=== PATIENT | male | born 1950 | race Caucasian/White ===

== ENCOUNTER 2024-05-11 08:11 | Inpatient (IN) ==
--- NOTE | 2024-04-21 12:11 | PAT Medication Instructions ---
Medication Instructions Date of Service April 21, 2024 Home Medications Organic Cannabis Cream 1 dose topical DAILY acetaminophen 500 mg tablet (Tylenol Extra Strength) 500 mg PO Q4H furosemide 40 mg tablet 20 mg PO QAM gabapentin 800 mg tablet 800 mg PO BID ibuprofen 200 mg capsule 200 mg PO Q6H PRN Pain ASK your surgeon for instructions ibuprofen 200 mg capsule 200 mg PO Q6H PRN Pain STOP taking 24 hours before surgery Organic Cannabis Cream 1 dose topical DAILY DO NOT take the morning of surgery furosemide 40 mg tablet 20 mg PO QAM Take morning of surgery With a small sip of water, OTHERWISE NOTHING TO EAT OR DRINK AFTER MIDNIGHT: acetaminophen 500 mg tablet (Tylenol Extra Strength) 500 mg PO Q4H gabapentin 800 mg tablet 800 mg PO BID Other Notes If you have any questions please call us at [phone] or [phone] or [phone] or [phone]
--- NOTE | 2024-04-29 09:43 | Anesthesiology Consultation ---
Date of Service April 29, 2024 Assessment & Plan (1) Encounter for pre-operative examination: - Infectious disease screening: Per assessment on 04/29/24: No known recent infectious disease contacts or current infectious disease symptoms. - Hypokalemia: Potassium low at 3.0 on preop labs. Note written to PCP- Awaiting hypokalemia response + surgeon-ordered PCP preop evaluation (Dr. Frankel/ [facility], appt 05/05). Chart Review Chart Review: Patient seen in Pre Admission Testing Teaching & Discussion Pre-Anesthesia Teaching/Discussion Notes: Instructed NPO after midnight before surgery,except medications with 15 cc of water. Medication instructions provided according to the PAT guidelines. History Surgery Operation Date: 05/11/24 07:45 Proposed Procedures p L2-L5 Decompression and Fusion, Spinal Cord Monitoring - Navneet Singh, Height/Weight Height: 5 ft 9 in Weight: 75.7 kg Allergies Allergy/AdvReac Type Severity Reaction Status Date / Time No Known Allergies Allergy Verified 04/19/24 09:50 Medications Home Medications Medication Instructions Recorded Confirmed Last Taken Organic Cannabis Cream 1 dose topical DAILY 04/19/24 04/19/24 Unknown acetaminophen 500 mg tablet 500 mg PO Q4H 04/19/24 04/19/24 Unknown (Tylenol Extra Strength) furosemide 40 mg tablet 20 mg PO QAM 04/19/24 04/19/24 Unknown gabapentin 800 mg tablet 800 mg PO BID 04/19/24 04/19/24 Unknown ibuprofen 200 mg capsule 200 mg PO Q6H PRN Pain 04/19/24 04/19/24 Unknown Past Medical History Medical History Arthritis DDD (degenerative disc disease), lumbar Edema Chronic LEs, taking furosemide Poor historian Exercise / Class Metabolic Activity III < 4 Walking/Shop/Light housework Past Surgical History Surgical History Hx of surgical procedure "Minor procedure" approximately 2013 done under anesthesia, patient cannot remember any other details Past Anesthesia History No Hx of Anesthesia Complications and No Family Hx of Anesthesia Complications History of PONV No Hx of PONV and No Hx of Motion Sickness Social History Smoking Status: Former smoker Do You Dip or Chew Tobacco: No Smoking End Date: Quit 6 weeks ago Hx Alcohol Use: Yes Alcohol type: beer alcohol intake frequency: a few times a week Hx Substance Use: No substance use type: does not use Substance Use Type Other:: topical cream only Review of Systems Patient denies chest pain, shortness of breath, fever, chills, cough, wheezing, palpitations. Physical Exam Vital Signs BP 142/68 P 72 TEMP 97.6 SP02 97%RA RESP 16 Physical Full cervical extension range of motion. Full TMJ range of motion. TMD > 3.5 finger breaths Mallampati Score II Dentition: poor dentition Lungs: clear throughout to auscultation Cardiac: regular rate and rhythm, no murmurs noted Spine: normal Carotid arteries: negative bruit Extremities: no LE edema Lab Results Anesthesia Preop Results Results Anesthesia Widget: WBC 7.94 K/ul (4.8-10.8) 04/29/24 Hgb 13.4 g/dl (14.0-18.0) L 04/29/24 Hct 38.1 % (42.0-52.0) L 04/29/24 Plt 360 K/uL (130-400) 04/29/24 Na 137 mmol/L (136-145) 04/29/24 K 3.0 mmol/L (3.5-5.1) L 04/29/24 Cl 98 mmol/L (98-107) 04/29/24 CO2 28 mmol/L (21-32) 04/29/24 BUN 18 mg/dl (6-23) 04/29/24 Creat 1.35 mg/dl (0.6-1.4) 04/29/24 Glucose Level 95 mg/dl (70-99(Fasting)) 04/29/24 PT 10.8 Seconds (9.0-12.0) 04/29/24 PTT 26 Seconds (21-31) 04/29/24 INR 1.0 (0.9-1.1) 04/29/24 Urine Color Yellow 04/29/24 Urine Appearance Clear (Clear) 04/29/24 Urine pH 5.0 (4.5-7.5) 04/29/24 Urine Specific [place] 1.013 (1.000-1.030) 04/29/24 Urine Protein Negative (Negative) 04/29/24 Urine Glucose (UA) Negative (Negative) 04/29/24 Urine Ketones Negative (Negative) 04/29/24 Urine Blood Negative (Negative) 04/29/24 Urine Nitrite Negative (Negative) 04/29/24 Urine Bilirubin Negative (Negative) 04/29/24 Urine Urobilinogen Negative (Negative) 04/29/24 Urine Leukocyte Esterase Trace (Negative) H 04/29/24 Urine WBC (Auto) 0-5 /hpf (0-5) 04/29/24 Urine RBC (Auto) 0-2 /hpf (0-2) 04/29/24 Urine Hyaline Casts (Auto) 6-10 /lpf (0-2) H 04/29/24 Urine Epithelial Cells (Auto) 0-2 /hpf (0-2) 04/29/24 Urine Bacteria (Auto) None Seen (None Seen) 04/29/24 Blood Type AB Positive 04/29/24 Antibody Screen NEGATIVE 04/29/24 Testing Electrocardiogram Date: 04/29/24 SR with PACs at 73bpm. "Otherwise normal ECG" Chest X-Ray Date: 04/29/24 FINDINGS: Cardiomediastinal hilar silhouettes are within normal limits. Hyperinflation with diaphragmatic flattening. No pneumothorax, pleural effusion or airspace consolidation. Equivocal punctate calcified granulomata. Bones appear grossly intact. IMPRESSION: No acute process of the chest.
[2024-05-11] MEDS ORDERED: PROPOFOL IV EMULSION 10 MG/ML 20 ML VIAL IV ONE (08:13)
[2024-05-11] MEDS ORDERED: ONDANSETRON INJ 2 MG/ML 2 ML VIAL ONE (08:13)
[2024-05-11] MEDS ORDERED: DEXAMETHASONE SOD INJ 4 MG/ML VIAL ONE (08:13)
[2024-05-11] MEDS ORDERED: fentaNYL citrate PF 100 MCG/2 ML VIAL ONE ×2 (08:13→11:58)
[2024-05-11] MEDS ORDERED: LIDOCAINE 2% 2 ML VIAL/AMP(20MG/ML) INFIL ONE ×2 (08:13)
[2024-05-11] MEDS ORDERED: MIDAZOLAM HCL 1 MG/ML 2ML VIAL ONE (08:13)
[2024-05-11] MEDS ORDERED: ROCURONIUM BROMIDE 10 MG/ML 5 ML VIAL IV ONE ×10 (08:14)
[2024-05-11] MEDS: ACETAMINOPHEN 500 MG TAB PO SCH (09:19)
[2024-05-11] MEDS: GABAPENTIN 300 MG CAP PO SCH (09:19)
[2024-05-11] MEDS: CeleBREX 200 MG CAP PO SCH (09:19)
[2024-05-11] MEDS: LR 60ML/HR IV SCH (09:20)
--- NOTE | 2024-05-11 09:42 | History & Physical Bridge Note ---
Date of Service May 11, 2024 History & Physical Bridge Note I have examined the patient, reviewed the History & Physical and in the interval since the performance of the History & Physical I have noted the following changes of clinical significance: no changes noted
--- NOTE | 2024-05-11 09:43 | History & Physical Report ---
Date of Service May 11, 2024 Assessment & Plan (1) Neurogenic claudication due to lumbar spinal stenosis: Plan: L2-L5 decompression and fusion possible S1 History of Present Illness Chief Complaint: Back and bilateral leg pain Primary Care Provider: NO PCP This is a 74-year-old male who presents above-mentioned diagnosis of failed course of nonoperative care is here for surgical invention. Allergies Allergy/AdvReac Type Severity Reaction Status Date / Time No Known Allergies Allergy Verified 05/11/24 09:04 Home Medications Medication Instructions Recorded Confirmed Type Organic Cannabis Cream 1 dose topical DAILY 04/19/24 05/11/24 History acetaminophen 500 mg tablet 500 mg PO Q4H 04/19/24 05/11/24 History (Tylenol Extra Strength) furosemide 40 mg tablet 20 mg PO QAM 04/19/24 05/11/24 History gabapentin 800 mg tablet 800 mg PO BID 04/19/24 05/11/24 History ibuprofen 200 mg capsule 200 mg PO Q6H PRN Pain 04/19/24 05/11/24 History Past Med/Surg History Problem List (Updated 05/11/24 @ 09:42 by Navneet Singh DO) Neurogenic claudication due to lumbar spinal stenosis Encounter for pre-operative examination Medical History Arthritis DDD (degenerative disc disease), lumbar Edema Chronic LEs, taking furosemide Poor historian Surgical History Hx of surgical procedure "Minor procedure" approximately 2013 done under anesthesia, patient cannot remember any other details Social History Smoking Status: Former smoker Smoking End Date: Quit 6 weeks ago; Second Hand Exposure: No; Do You Dip or Chew Tobacco: No; Tobacco Cessation Education Requested by Patient: No Hx Alcohol Use: Yes Alcohol type: beer Hx Substance Use: No Preferred Language: [place] Communication Ability: Effective Filter Tip Catcher Required: No Beliefs That Will Affect Care: None Current Living Situation: Alone Other Information That Helps Us Care for You: No Feels Safe at Home: Yes Safety Concerns: Feels Safe At This Time Assistive Devices: Cane, Glasses and Walker Physical Exam Physical Exam: Patient is alert and oriented heart regular rhythm Lungs clear Results & Data Results & Data Vital Signs (Past 12 Hours) Vital Signs Temp Pulse Resp BP Pulse Ox O2 Del Method 05/11/24 09:01 36.8 C 74 20 163/90 H 98 Room Air
[2024-05-11] MEDS: LR 15ML/HR IV SCH (09:51)
[2024-05-11] MEDS ORDERED: ONDANSETRON INJ 2 MG/ML 2 ML VIAL IV PRN ×2 (10:00→14:51)
[2024-05-11] MEDS ORDERED: ePHEDrine sulfate 50 MG/ML AMP IV PRN (10:00)
[2024-05-11] MEDS ORDERED: ATROPINE SULFATE 0.1 MG/ML 10ML SYR IV PRN (10:00)
[2024-05-11] MEDS: ceFAZolin 2000MG 2,000 MG/15 ML SYR IV SCH ×2 (10:19→17:20)
[2024-05-11] MEDS: BUPIVACAINE/EPINEPHRINE 0.25% 1:200,000 30 ML VIAL ONE (11:00)
[2024-05-11] MEDS ORDERED: SUGAMMADEX SODIUM 200 MG/2 ML VIAL IV ONE (11:35)
[2024-05-11] MEDS: ceFAZolin 330 MG/ML 1 GM VIAL ONE (12:58)
[2024-05-11] MEDS: FLOSEAL HEMOSTATIC MATRIX 10ML TOP ONE (12:58)
--- NOTE | 2024-05-11 13:06 | Operative Report ---
Post Operative Report Pre & Post Diagnosis Operation Date: 05/11/24 10:05 Pre-Op Diagnosis: Spinal Steonsis of Lumbar Region with Radiculopathy Post-Op Diagnosis: Spinal Steonsis of Lumbar Region with Radiculopathy I identified the patient and participated in the time-out.: Yes Procedure Operation Date: 05/11/24 10:05 Actual Procedures #1 lumbar decompression with bilateral medial facetectomies and foraminotomies L2-L3, L3-L4, L4-L5 and L5-S1. #2 posterior spinal fusion L2-S1. #3 placement posterior segmental instrumentation L2-S1. #4 interbody fusion L5-S1. #5 placement of Spira 11 x 22 mm x 2 at L5-S1. #6 placement locally harvested morselized autograft and posterior gutters. #7 placement infuse collagen sponge combined with Koros in the posterior lateral gutters and os design interbody space. #8 application of versa wrap over the exposed dura. #9 excision of extradural mass L5-S1 Surgeon Navneet Singh, DO Cnc Operator Machinist Shereen Zavala Estimated Blood Loss 450 Findings Consistent with Post-Op Diagnosis Specimens None Indications This is a 74-year-old male presents publish diagnosis after failing course of nonoperative care is here for surgical invention. Description of Procedure Patient was met with identified informed consent obtained. Patient was then taken to the operative suite underwent intubation placed in a prone position on the Dat table on top of the Ethan frame. All bony promises well-padded eyes inspected to ensure no external pressure placed upon them. This point the lumbar spine was prepped and draped in the normal sterile fashion. Sharp dissection with the assistance of Bovie cautery from down to and exposing the lamina transverse processes of L2 L3-L4-L5 and sacral ala bilaterally. From a caudal cephalad fashion complete laminectomy of L5 was performed including bilateral medial facetectomies and foraminotomies as well as excision of facet cyst on the right was directly adhered to the traversing S1 nerve root. Proceeded to L4 and performed a bilateral medial facetectomies and foraminotomies addressing severe stenosis. L3 complete laminectomy with bilateral medial facetectomies and foraminotomies and lastly L2 with bilateral medial facetectomies and foraminotomies addressing severe spinal stenosis. Pedicle screws were then placed in L2 L3-L4-L5 and S1 levels bilaterally with assistance of fluoroscopy and the properly sized taco contoured and placed. By way of transforaminal approach on the right discectomy of L5-S1 was performed endplates grade 2 subcortical bleeding bone and 11 x 26 mm spira cage filled with os designed tapped into position. Then proceeded to the left transforaminal region at L5-S1. Performed a discectomy endplates guided to subcortical bleeding bone and a second 11 x 26 mm Spira cage filled with os design tapped into position. The rods were then locked in final position bilaterally. The transverse processes of L2 L3-L4-L5 and the sacral ala burred to subcortical bleeding bone. Infuse collagen sponge combined with Koros and local autograft placed in the posterior gutters. Across cross-link locked into position. Versa wrap placed over the exposed dura. 15 round JULIAN drain inserted. The incision was then closed with 1 Vicryl in the fascia 2-0 Vicryl subcutaneously and 4 Monocryl for final skin closure. Steri-Strips and sterile dressing placed. Patient waken taken to PACU stable condition. Please note spinal cord monitoring visualized at the procedure and no changes noted. Lastly Shereen Zavala was present at the entire surgery involved in patient positioning complex portions of the surgery and final skin closure. Im ordering 20 grams of Triple [place] Collagen Powder (CreationFlow [id number]) to treat an incision wound that was caused by a spine procedure. The incision is approximately 2 cm(W) x 4 cm(L) into the joint (D) in size and is a full thickness wound. Triple [place] collagen comes in 1 gram packets so 20 packets were ordered. Given the size of the wound, with light to moderate exudate I chose to order a 20 day supply. The patient will be provided instructions for proper application of the collagen wound kit. The patient will be asked to apply the collagen powder daily and then cover it with sterile dressings dispensed. Collagen was selected as I expe ct the collagen to attract monocytes and fibroblasts, act as a sacrificial substrate for MMPs, and ultimately proved a matrix for tissue and vessel growth. The collagen will act as a primary dressing in this scenario. It is medically necessary for proper healing of these wounds to improve bioavailability and contact with each wound surface, this is also to help prevent infection of wounds and promote healing ultimately leading to a better healing outcome and limit the risk of infection. I attest to the content of the Intraoperative Record and any orders documented therein. Any exceptions are noted below.
--- NOTE | 2024-05-11 13:31 | Fluoroscopy Report ---
FL lumbar spine 2-3V CLINICAL HISTORY: L2-S1 DECOMPRESSION COMPARISON STUDY: None. FLUOROSCOPY TIME: 31 seconds. Ka, r: 29.26 mGy FLUOROSCOPIC IMAGES: 4 FINDINGS: Fluoroscopy was provided during L2-S1 decompression with bilateral pedicle screw fusion. Th e L5-S1 discectomy spacer is present. Hardware is intact. IMPRESSION: Fluoroscopy provided during L2-S1 decompression and fusion with L5-S1 discectomy. ACT 112: Negative or not required by law. Electronically signed by: Balbir Dooley M.D. 05/11/2024 1:30 PM
[2024-05-11] MEDS: fentaNYL citrate PF 100 MCG/2 ML VIAL IV PRN (13:37)
[2024-05-11] MEDS: HYDROmorphone INJ 1 MG/ML SYRINGE IV PRN (14:00)
--- NOTE | 2024-05-11 14:31 | Anesthesiology Progress Note ---
Date of Service May 11, 2024 Anesthesia Post Procedure Vital Signs Vital Signs: Temp Pulse Pulse Resp BP Pulse Ox O2 Del Method 05/11/24 14:20 97.5 F L 70 12 104/60 98 Nasal Cannula 05/11/24 14:10 76 14 105/67 100 Nasal Cannula 05/11/24 14:00 78 12 103/65 99 Nasal Cannula 05/11/24 13:50 76 12 108/66 90 Room Air 05/11/24 13:40 78 12 106/71 96 Room Air 05/11/24 13:30 75 12 118/67 100 Oxymask 05/11/24 13:20 96.8 F L 80 16 106/64 99 Oxymask 05/11/24 09:01 98.2 F 74 20 163/90 H 98 Room Air O2 Flow Rate 05/11/24 14:20 2 05/11/24 14:10 2 05/11/24 14:00 2 05/11/24 13:50 05/11/24 13:40 05/11/24 13:30 6 05/11/24 13:20 6 05/11/24 09:01 Pain Intensity Back: Pain Intensity: 1 Transfer of Care Handoff Completed per policy Notes Mental Status: alert / awake / arousable and participated in evaluation Patient Amnestic to Procedure: Yes Nausea / Vomiting: adequately controlled Pain: adequately controlled Airway Patency, RR, SpO2: stable & adequate BP & HR: stable & adequate Hydration State: stable & adequate Anesthetic Complications: no major complications apparent and Pt Satisfied with anesthetic care
[2024-05-11] MEDS ORDERED: bisacodyL 10 MG SUPP PR PRN (14:51)
[2024-05-11] MEDS ORDERED: DO NOT ADMINISTER PNEUMOCOCCAL VACCINE PRN (14:51)
[2024-05-11] MEDS ORDERED: NALOXONE HCL 0.4 MG/1 ML VIAL/CARP IV PRN (14:51)
[2024-05-11] MEDS ORDERED: SOD PHOSPHATE/SOD BIPHOSPHATE ENEMA 132 ML BTL PR PRN (14:51)
[2024-05-11] MEDS ORDERED: ALUMINUM/MAGNESIUM SUSP 30 ML UDC PO PRN (14:51)
[2024-05-11] MEDS ORDERED: hydrOXYzine HCl 25 MG TAB PO PRN (14:51)
[2024-05-11] MEDS ORDERED: HYDROmorphone INJ 1 MG/ML SYRINGE IV PRN (14:51)
[2024-05-11] MEDS ORDERED: LORazepam 2 MG/1 ML VIAL IV PRN (14:51)
[2024-05-11] MEDS ORDERED: FAMOTIDINE 20 MG TAB PO PRN (14:51)
[2024-05-11] MEDS ORDERED: PROMETHAZINE 12.5 MG/50.5 ML BAG IV PRN (14:51)
[2024-05-11] MEDS ORDERED: MAGNESIUM HYDROXIDE SUSP 30 ML UDC PO PRN (14:51)
[2024-05-11] MEDS ORDERED: ACETAMINOPHEN 1,000 MG/100 ML VIAL IV PRN (14:51)
[2024-05-11] MEDS ORDERED: ACETAMINOPHEN 500 MG TAB PO PRN (14:51)
[2024-05-11] MEDS ORDERED: ONDANSETRON 4 MG OD TAB PO PRN (14:51)
[2024-05-11] MEDS ORDERED: METOCLOPRAMIDE HCL INJ 5 MG/ML 2 ML VIAL IV PRN (14:51)
[2024-05-11] MEDS ORDERED: DO NOT ADMINISTER FLU VACCINE PRN (14:51)
[2024-05-11] MEDS: LACTATED RINGER'S 1,000 ML IV SCH (14:57)
--- NOTE | 2024-05-11 15:35 | Hospitalist Consultation ---
Date of Consultation May 11, 2024 Assessment & Plan (1) Neurogenic claudication due to lumbar spinal stenosis: (2) S/P spinal surgery: (3) Edema: (4) Poor historian: Plan This is a 74yo M with a PMH of spinal stenosis of lumbar region with neurogenic claudication, peripheral edema and other medical problems listed below who is POD #0 s/p lumbar decompression with bilateral medial facetectomies and foraminotomies L2-L3, L3-L4, L4-L5 and L5-S1 and posterior spinal fusion L2-S1 by Dr. Singh. S/p spinal surgery Underwent #1 lumbar decompression with bilateral medial facetectomies and foraminotomies L2-L3, L3-L4, L4-L5 and L5-S1. #2 posterior spinal fusion L2-S1 etc by Dr. Singh on 05/11/24 Per ortho for pain control, wound care, anticoagulation and activities Monitor H&H (EBL 450ml, pre-op hgb 13.4 from 04/29/24) Continue incentive spirometry, PT/OT when appropriate Patient stopped gabapentin 2 weeks ago at home, will discontinue Holding Cannabis cream Peripheral edema BP 121/65, trace BLE edema on exam. Continue daily lasix tomorrow DVT Ppx: SCDs Code status: FULL PCP: Jostin ([facility]) Dispo: Per primary service Patient seen in collaboration with Dr. Castano. Please see addendum. I spent a total of 50 minutes coordinating, documenting, and providing care for this patient excluding time spent in the performance of separately billed services. Thank you for this consultation. We will follow the patient with you during their hospital stay. You can reach a member of the [facility] Hospitalist Team 03/03 via [employer] Supervising Physician Co-Signing Physician Notes Pt is a 74 y/o male POD #0 s/p lumbar decompression with bilateral medial facetectomies and foraminotomies L2-L3, L3-L4, L4-L5 and L5-S1 and posterior spinal fusion L2-S1 by Dr. Singh. We are asked to see the pt for medical management. Pt seen and examined at bedside post op. His pain is under good control at present. He denies CP, SOB, nausea or emesis. I spent 15 minutes in care coordination of this post op patient. I agree with Lucretia Ochoa PA-C's assessment and documentation. Thank you Dr. Singh for the consult. History of Present Illness Reason for Consultation: post op med mgmt Attending Physician: Navneet Singh DO History of Present Illness This is a 74yo M with a PMH of spinal stenosis of lumbar region with neurogenic claudication, peripheral edema and other medical problems listed below who is POD #0 s/p lumbar decompression with bilateral medial facetectomies and foraminotomies L2-L3, L3-L4, L4-L5 and L5-S1 and posterior spinal fusion L2-S1 by Dr. Singh. Patient endorsing surgical site discomfort following procedure as well as some tightness of the hips it has been present for the past month. No w eakness or paresthesias in BLE. No chest pain, shortness of breath, nausea or vomiting. Denies any chronic medical issues other than some lower extremity swelling for which she is on Lasix. Quit smoking and drinking alcohol 7 weeks ago in preparation for the surgery. Receives primary care through [facility] in [place]. Allergies Allergy/AdvReac Type Severity Reaction Status Date / Time No Known Allergies Allergy Verified 05/11/24 09:04 Home Medications Medication Instructions Recorded Confirmed Type Organic Cannabis Cream 1 dose topical DAILY 04/19/24 05/11/24 History acetaminophen 500 mg tablet 500 mg PO Q4H 04/19/24 05/11/24 History (Tylenol Extra Strength) furosemide 40 mg tablet 20 mg PO QAM 04/19/24 05/11/24 History ibuprofen 200 mg capsule 200 mg PO Q6H PRN Pain 04/19/24 05/11/24 History Patient History Medical History Poor historian Arthritis Edema Chronic LEs, taking furosemide DDD (degenerative disc disease), lumbar Surgical History Hx of surgical procedure "Minor procedure" approximately 2013 done under anesthesia, patient cannot remember any other details Family History Other Heart disease Hypertension Social History Smoking Status: Former smoker Smoking End Date: Quit 6 weeks ago; Second Hand Exposure: No; Do You Dip or Chew Tobacco: No; Tobacco Cessation Education Requested by Patient: No Hx Alcohol Use: Yes Alcohol type: beer Hx Substance Use: No Preferred Language: [place] Communication Ability: Effective Operations Lead Required: No Beliefs That Will Affect Care: None Current Living Situation: Alone Other Information That Helps Us Care for You: No Feels Safe at Home: Yes Safety Concerns: Feels Safe At This Time Assistive Devices: Cane and Walker Review of Systems Review of Systems: At least ten systems reviewed and negative except as noted in the HPI. Physical Exam Physical Exam: General Appearance: WD/WN, vitals as above, NAD, sitting up in bed, conversing without issue Head: normocephalic, atraumatic Eyes: normal inspection, PERRL, conjunctivae normal, anicteric sclerae ENT: external ear and nose normal, oropharynx normal, + poor dentition Neck: normal visual inspection, trachea midline, no thyromegaly Respiratory: normal respiratory effort, lungs clear to auscultation, no wheeze, rales, rhonchi. No accessory muscle use Cardiovascular: regular rate, rhythm, normal peripheral pulses, trace BLE edema Chest: normal inspection of chest Abdomen/GI: normal bowel sounds, soft, nontender, no hepatosplenomegaly Extremities/Musculoskeletal: + spinal dressing c/d/i, JULIAN drain visualized, extremities motor strength 5/5 Neurologic: PERRL, EOMI, accommodation nl, no face palsy, no dysarthria, CN's II-XI intact bilaterally and moves all extremities Psychiatric: A+Ox3, euthymic affect Skin: no rashes, normal color, warm/dry Results & Data Results & Data Vital Signs (Past 12 Hours) Vital Signs Temp Pulse Pulse Resp BP Pulse Ox O2 Del Method 05/11/24 15:21 36.4 C L 76 16 105/64 100 Nasal Cannula 05/11/24 14:51 36.3 C L 78 17 123/71 99 Nasal Cannula 05/11/24 14:35 71 12 104/65 98 Nasal Cannula 05/11/24 14:20 36.4 C L 70 12 104/60 98 Nasal Cannula 05/11/24 14:10 76 14 105/67 100 Nasal Cannula 05/11/24 14:00 78 12 103/65 99 Nasal Cannula 05/11/24 13:50 76 12 108/66 90 Room Air 05/11/24 13:40 78 12 106/71 96 Room Air 05/11/24 13:30 75 12 118/67 100 Oxymask 05/11/24 13:20 36 C L 80 16 106/64 99 Oxymask 05/11/24 09:01 36.8 C 74 20 163/90 H 98 Room Air O2 Flow Rate 05/11/24 15:21 2 05/11/24 14:51 2 05/11/24 14:35 2 05/11/24 14:20 2 05/11/24 14:10 2 05/11/24 14:00 2 05/11/24 13:50 05/11/24 13:40 05/11/24 13:30 6 05/11/24 13:20 6 05/11/24 09:01 Laboratory Results Pre-op labs (04/29/24): Hgb 13.4 Creat 1.35
[2024-05-11 19:00] LABS: Amphetamines+Metham, Urine Neg (Neg); Barbiturates, Urine Neg (Neg); Benzodiazepine, Urine Pos (Neg); Cocaine, Urine Neg (Neg); Fentanyl, Urine Pos (Neg); MDMA (Ecstacy), Urine Neg (Neg); Marijuana, Urine Neg (Neg); Methadone, Urine Neg (Neg); Opiate, Urine Pos (Neg); Phencyclidine, Urine Neg (Neg)
[2024-05-11] MEDS: HYDROmorphone INJ 0.5 MG/0.5 ML SYR IV PRN (19:54)
[2024-05-11] MEDS ORDERED: GABAPENTIN 800 MG TAB PO SCH (21:00)
[2024-05-11] MEDS: oxyCODONE HCL IR 5 MG TAB (IMMEDIATE RELEASE) PO PRN (21:51)
[2024-05-11] MEDS: DOCUSATE SODIUM/SENNA 50/8.6MG TAB PO SCH (21:52)
[2024-05-12] MEDS: LORazepam 0.5 MG TAB PO PRN (00:26)
[2024-05-12] MEDS: POLYETHYLENE (MIRALAX) 17 GM PACK PO SCH (06:07)
[2024-05-12 07:18] LABS: Basophils # (auto) 0.02 K/uL (0.00-0.20); Basophils % (auto) 0.1 %; Hematocrit (blood only) 28.5 % (42.0-52.0); Hemoglobin 9.5 g/dl (14.0-18.0); Immature Granulocytes # (auto) 0.09 K/uL (0.01-0.20); Immature Granulocytes % (auto) 0.7 %; Lymphocytes # (auto) 1.32 K/uL (1.20-3.40); Lymphocytes % (auto) 9.8 %; Mean Corpuscular Hemoglobin 32.5 pg (25.0-34.0); Mean Corpuscular Hgb Conc 33.3 g/dL (32.0-36.0); Mean Corpuscular Volume 97.6 fL (80.0-100.0); Mean Platelet Volume 10.1 fL (9.4-12.4); Monocytes # (auto) 1.68 K/uL (0.11-0.59); Monocytes % (auto) 12.5 %; Neutrophils # (auto) 10.37 K/uL (1.40-6.50); Neutrophils % (auto) 76.9 %; Platelet Count 270 K/uL (130-400); RDW Coefficient of Variation 12.3 % (11.5-14.5); RDW Standard Deviation 43.9 fL (36.4-46.3); Red Blood Count 2.92 M/uL (4.70-6.10); White Blood Count 13.48 K/ul (4.8-10.8)
[2024-05-12 07:25] LABS: BUN Creatinine Ratio 11.6 (10-20); Calcium 8.8 mg/dl (8.6-10.3); Creatinine Clr Calc Pharmacy 68.2 ml/min; Est GFR (Non-African American) 78.5 ml/min; Potassium 4.5 mmol/L (3.5-5.1)
[2024-05-12] MEDS: dexAMETHasone 6 MG in SYRINGE 0 ML IV SCH (08:51)
[2024-05-12] MEDS: FUROSEMIDE 20 MG TAB PO SCH (08:52)
[2024-05-12] MEDS ORDERED: [UNRECOGNIZED DRUG - OTHER] TOP SCH (09:00)
--- NOTE | 2024-05-12 11:01 | Hospitalist Progress Note ---
Date of Service May 12, 2024 Assessment & Plan (1) Neurogenic claudication due to lumbar spinal stenosis: (2) S/P spinal surgery: (3) Edema: (4) Poor historian: (5) Acute blood loss as cause of postoperative anemia: Plan This is a 74yo M with a PMH of spinal stenosis of lumbar region with neurogenic claudication, peripheral edema and other medical problems listed below who is POD #0 s/p lumbar decompression with bilateral medial facetectomies and foraminotomies L2-L3, L3-L4, L4-L5 and L5-S1 and posterior spinal fusion L2-S1 by Dr. Singh. S/p spinal surgery Underwent #1 lumbar decompression with bilateral medial facetectomies and kentrell inotomies L2-L3, L3-L4, L4-L5 and L5-S1. #2 posterior spinal fusion L2-S1 etc by Dr. Singh on 05/11/24 Per ortho for pain control, wound care, anticoagulation and activities Monitor H&H (EBL 450ml, pre-op hgb 13.4 from 04/29/24) Continue incentive spirometry, PT/OT when appropriate Patient stopped gabapentin 2 weeks ago at home, will discontinue Holding Cannabis cream Acute blood loss anemia as cause of post operative anemia with dilutional component as well hgb pre op 13.4, POD #1 9.5 Peripheral edema Continue daily lasix Impulsive Behavior pt with impulsiveness working with therapy and not following directions apparently this is baseline and needs redirection monitor UDS + for opiate, fentayl and benzo; however this was taken post operatively so likely indicative of intraoperative anesthesia/analgesia Cognitive decline pt A and O x 3, but was unable to tell me name of place and name of his surgeon there is ? if there is some underlying cognitive decline at baseline vs mild delirium in post op state monitor closely, limit narcs as able DVT Ppx: SCDs Code status: FULL PCP: Jostin ([facility]) Dispo: Per primary service I spent a total of 42 minutes coordinating, documenting, and providing care for this patient excluding time spent in the performance of separately billed services. Thank you for this consultation. We will follow the patient with you during their hospital stay. You can reach a member of the [facility] Team 03/03 via [employer]. Admission and Anticipated Discharge Date Admission Date: May 11, 2024 Supervising Physician Co-Signing Physician Notes Pt is a 74 y/o male POD #1 s/p lumbar decompression with bilateral medial facetectomies and foraminotomies L2-L3, L3-L4, L4-L5 and L5-S1 and posterior spinal fusion L2-S1 by Dr. Singh. Pt seen as a f/u for medical management. Pt seen and examined at bedside. His pain is under good control at present. He denies CP, SOB, nausea or emesis. I spent 20 minutes in care coordination of this post op patient. I agree with BARRINGTON Mckeon's assessment and documentation. Thank you Dr. Singh for the consult. Subjective NAEO. Nurse reports pt with off behavior and uncertain if this is baseline. States very impulsive. Pt c/o pain, 10/18. He just walked with therapy. He would like to be discharged. He denies cp, sob, n/v/d. He is tolerating diet and passing gas. While pt was working with PT he wasn't following instructions and continued to bend/move his body inappropriately despite being asked not to. Review of Systems Review of Systems: All systems reviewed & are unremarkable except as noted in HPI & below Physical Exam Physical Exam: Gen: WD/WN, Sitting up in bedside chair, very talkative, impulsive, A&O x3 HEENT: Normocephalic, atraumatic, conjunctivae moist, sclerae anicteric, mucous membranes moist, poor dentition Lung: Clear to Auscultation bilaterally, no wheezes/rales/rhonchi Heart: Regular rate, regular rhythm, no murmurs, rubs, or gallops Abdomen: Soft, NT, ND +BS x 4 Extremities: No edema, lumbar dressing saturated, JULIAN drain with serosang drainage Skin: Warm, no rash, negative turgor. Results & Data Results & Data Vital Signs (Past 12 Hours) Vital Signs Temp Pulse Resp BP Pulse Ox O2 Del Method O2 Flow Rate 05/12/24 09:29 98 Room Air 05/12/24 08:10 98 Nasal Cannula 2.5 05/12/24 08:00 87 L Room Air 05/12/24 07:25 36.4 C L 90 16 112/69 92 Nasal Cannula 2 05/12/24 03:38 35.6 C L 80 18 126/62 99 Nasal Cannula 2 05/12/24 00:32 36.4 C L 73 18 135/71 100 Nasal Cannula 2 Laboratory Results Short CBC 05/12/24 Range/Units 06:22 WBC 13.48 H (4.8-10.8) K/ul Hgb 9.5 L (14.0-18.0) g/dl Hct 28.5 L (42.0-52.0) % Plt Count 270 (130-400) K/uL BMP 05/12/24 06:22 Sodium 138 Potassium 4.5 Chloride 102 Carbon Dioxide 29 BUN 11 Creatinine 0.95 Glucose 116 H Calcium 8.8 Medications Administered Current Inpatient Medications Acetaminophen (Acetaminophen 500 Mg Tab) 1,000 mg PO Q8H PRN PRN Reason: MILD Pain Scale 1,2,3 & Pre PT Stop: 06/10/24 14:50 Al Hydrox/Mg Hydrox/Simethicone (Aluminum/Magnesium Susp 30 Ml Udc) 30 ml PO Q6H PRN PRN Reason: Dyspepsia Stop: 06/10/24 14:50 Bisacodyl (Bisacodyl 10 Mg Supp) [address] DAILY PRN PRN Reason: Constipation Stop: 06/10/24 14:50 Diphenhydramine HCl (Diphenhydramine Capsule 25 Mg Cap) 25 mg PO Q6H PRN PRN Reason: Allergic Rhinitis/Insomnia Stop: 06/10/24 14:50 Famotidine (Famotidine 20 Mg Tab) 20 mg PO Q12H PRN PRN Reason: Dyspepsia Stop: 06/10/24 14:50 Furosemide (F[facility]semide 20 Mg Tab) [facility] Stop: 06/11/24 08:59 Last Admin: 05/12/24 08:52 Dose: 20 mg Hydromorphone HCl (Hydromorphone Inj 0.5 Mg/0.5 Ml Syr) 0.5 mg IV Q3H PRN PRN Reason: MODERATE Pain (Scale 4,5,6) & Pre PT Stop: 05/25/24 14:50 Last Admin: 05/11/24 19:54 Dose: 0.5 mg Hydromorphone HCl (Hydromorphone Inj 1 Mg/Ml Syringe) 1 mg IV Q3H PRN PRN Reason: SEVERE Pain (Scale 7,8,9,10) Stop: 05/25/24 14:50 Hydroxyzine HCl (Hydroxyzine Hcl 25 Mg Tab) 25 mg PO Q8H PRN PRN Reason: Anxiety Stop: 06/10/24 14:50 Acetaminophen (Ofirmev) 1,000 mg in 100 mls @ 400 mls/hr IV Q8H PRN PRN Reason: Pain Rating 1-3 & Pre PT Stop: 05/12/24 14:51 Promethazine HCl (Phenergan) 12.5 mg in 50.5 mls @ 202 mls/hr IV Q6H PRN PRN Reason: Nausea And Vomiting Stop: 06/10/24 14:50 Dexamethasone 6 mg/ Syringe 1.5 mls @ 1 mls/min IV DAILY WILLIAM Stop: 05/14/24 09:02 Last Admin: 05/12/24 08:51 Dose: 1 mls/min Influenza Virus Vaccine Quadrival (Do Not Administer Flu Vaccine) 1 each N/A PRN PRN PRN Reason: Notification Stop: 06/10/24 14:50 Lorazepam (Lorazepam 0.5 Mg Tab) 0.5 mg PO Q8H PRN PRN Reason: Sedation/Anxiety Stop: 06/10/24 14:50 Last Admin: 05/12/24 00:26 Dose: 0.5 mg Lorazepam (Lorazepam 2 Mg/1 Ml Vial) 0.5 mg IV Q8H PRN PRN Reason: Sedation/Anxiety Stop: 06/10/24 14:50 Magnesium Hydroxide (Magnesium Hydroxide Susp 30 Ml Udc) 30 ml PO Q24H PRN PRN Reason: Constipation Stop: 06/10/24 14:50 Metoclopramide HCl (Metoclopramide Hcl Inj 5 Mg/Ml 2 Ml Vial) 10 mg IV Q6H PRN PRN Reason: Nausea &/or Vomiting Stop: 06/10/24 14:50 Naloxone HCl (Naloxone Hcl 0.4 Mg/1 Ml Vial/Carp) 0.1 mg IV Q5M PRN PRN Reason: Oversedation/Resp depression Stop: 06/10/24 14:50 Ondansetron HCl (Ondansetron Inj 2 Mg/Ml 2 Ml Vial) 4 mg IV Q6H PRN PRN Reason: Nausea &/or Vomiting Stop: 06/10/24 14:50 Ondansetron HCl (Ondansetron 4 Mg Od Tab) 4 mg PO Q6H PRN PRN Reason: Nausea Stop: 06/10/24 14:50 Oxycodone HCl (Oxycodone Hcl Ir 5 Mg Tab (Immediate Release)) 5 - 10 mg PO Q4H PRN PRN Reason: Pain & Pre PT Stop: 05/25/24 14:50 Last Admin: 05/12/24 03:29 Dose: 10 mg Pneumococcal Polyvalent Vaccine (Do Not Administer Pneumococcal Vaccine) 1 each N/A PRN PRN PRN Reason: Notification Stop: 06/10/24 14:50 Polyethylene Glycol (Polyethylene (Miralax) 17 Gm Pack) 17 gm PO Q6 WILLIAM Stop: 06/11/24 05:59 Last Admin: 05/12/24 06:07 Dose: 17 gm Senna/Docusate Sodium (Docusate Sodium/Senna 50/8.6mg Tab) 2 tab PO HS WILLIAM Stop: 06/10/24 20:59 Last Admin: 05/11/24 21:52 Dose: 2 tab Sodium Biphosphate/Sodium Phosphate (Sod Phosphate/Sod Biphosphate Enema 132 Ml Btl) [address] ONE PRN PRN Reason: Constipation Stop: 06/10/24 14:50 Tramadol HCl (Tramadol Hcl 50 Mg Tablet) 50 - 100 mg PO Q4H PRN PRN Reason: Moderate-Severe pain & Pre PT Stop: 06/10/24 14:50
--- NOTE | 2024-05-12 14:42 | Orthopedic Progress Note ---
Date of Service May 12, 2024 Assessment & Plan (1) Neurogenic claudication due to lumbar spinal stenosis: Plan: At this time we will continue physical therapy monitor his JULIAN output hopefully discharge in next few days. Admission and Anticipated Discharge Date Admission Date: May 11, 2024 Subjective Back pain controlled leg symptoms improved Physical Exam Physical Exam: Patient is in the chair at the bedside. Discussed with the testing. Results & Data Vital Signs (Past 12 Hours) Vital Signs Temp Pulse Pulse Resp BP Pulse Ox O2 Del Method 05/12/24 14:30 36.7 C 87 16 140/64 97 Room Air 05/12/24 09:29 98 Room Air 05/12/24 08:10 Nasal Cannula 05/12/24 08:10 98 Nasal Cannula 05/12/24 08:00 87 L Room Air 05/12/24 07:25 36.4 C L 90 16 112/69 92 Nasal Cannula 05/12/24 03:38 35.6 C L 80 18 126/62 99 Nasal Cannula O2 Flow Rate 05/12/24 14:30 05/12/24 09:29 05/12/24 08:10 2 05/12/24 08:10 2.5 05/12/24 08:00 05/12/24 07:25 2 05/12/24 03:38 2 Queries Orthopedic Spine Acute Posthemorrhagic Anemia: Yes
[2024-05-12] MEDS: ACETAMINOPHEN 500 MG TAB PO SCH (16:26)
[2024-05-13 08:10] LABS: Hematocrit (blood only) 29.5 % (42.0-52.0); Hemoglobin 10.2 g/dl (14.0-18.0); Mean Corpuscular Hemoglobin 32.6 pg (25.0-34.0); Mean Corpuscular Hgb Conc 34.6 g/dL (32.0-36.0); Mean Corpuscular Volume 94.2 fL (80.0-100.0); Platelet Count 320 K/uL (130-400); RDW Coefficient of Variation 12.2 % (11.5-14.5); RDW Standard Deviation 42.2 fL (36.4-46.3); Red Blood Count 3.13 M/uL (4.70-6.10)
[2024-05-13 08:24] LABS: BUN Creatinine Ratio 13.9 (10-20); Calcium 9.2 mg/dl (8.6-10.3); Creatinine Clr Calc Pharmacy 64.2 ml/min; Magnesium 1.9 mg/dl (1.7-2.4); Potassium 4.2 mmol/L (3.5-5.1)
--- NOTE | 2024-05-13 08:42 | Orthopedic Progress Note ---
Date of Service May 13, 2024 Assessment & Plan (1) Neurogenic claudication due to lumbar spinal stenosis: Plan: At this time continue physical therapy monitor JULIAN output. I did discuss with the patient that he is a candidate for rehab. Hopefully bed will become available when he can discharge to rehab tomorrow. Admission and Anticipated Discharge Date Admission Date: May 11, 2024 Subjective Back pain controlled leg symptoms improved Physical Exam Physical Exam: Patient is in a chair at the bedside. Is good strength testing. Appears comfortable. Results & Data Vital Signs (Past 12 Hours) Vital Signs Temp Pulse Resp BP Pulse Ox O2 Del Method O2 Flow Rate 05/13/24 07:50 36.6 C 89 16 100/60 94 Room Air 05/12/24 22:49 36.3 C L 76 16 125/66 99 Nasal Cannula 2 05/12/24 22:49 Nasal Cannula 2 05/12/24 21:22 36.5 C 78 18 130/81 97 Room Air Queries Orthopedic Spine Acute Posthemorrhagic Anemia: Yes
--- NOTE | 2024-05-13 14:01 | Hospitalist Progress Note ---
Date of Service May 13, 2024 Assessment & Plan (1) Neurogenic claudication due to lumbar spinal stenosis: (2) S/P spinal surgery: (3) Acute blood loss as cause of postoperative anemia: Plan Riaz Jones is a 74y/o M with PMHx of spinal stenosis of lumbar region with neurogenic claudication, peripheral edema and other medical problems listed below who underwent lumbar decompression with bilateral medial facetectomies and foraminotomies L2-L3, L3-L4, L4-L5 and L5-S1 and posterior spinal fusion L2-S1 performed by Dr. Singh on 05/11/24. He was referred to our team for post- operative medical management. Neurogenic Claudication 2/2 Lumbar Spinal Stenosis S/P Spinal Surgery: POD #2 s/p lumbar decompression with bilateral medial facetectomies and foraminotomies L2-L3, L3-L4, L4-L5 and L5-S1 and posterior spinal fusion L2-S1 with Dr. Singh. EBL: 450mL & Pre-Op Hgb: 13.4 [04/29/24] Per ortho for pain control, wound care, anticoagulation and activities. Continue incentive spirometry, PT/OT when appropriate as per ortho team. Monitor H/H closely for acute blood loss anemia and transfuse blood products PRN. Patient stopped gabapentin 2 weeks ago at home - discontinued. Holding Cannabis cream. Post-Operative Acute Blood Loss Anemia: Likely dilutional component as well. Pre-op Hgb was 13.4 as per above. Hgb was 9.5 yesterday and improved to 10.2 today. Will continue to monitor. Peripheral Edema: Continue daily Lasix. Impulsive Behavior: Patient with impulsiveness working with therapy and not following directions. Apparently this is his baseline and he requires frequent redirection. UDS + for opiate, fentanyl and benzo; however, this was taken post-operatively so likely indicative of intraoperative anesthesia/analgesia. Per PT/OT notes today, chelly dixon was educated multiple times on spinal precautions but even with education and frequent reminders he was still bending down and twisting at the waist. Unsafe for patient to go home and PT/OT both recommending inpatient rehabilitation stay at time of discharge. CM involved and working to get the patient placement. Referral was made to [facility] in [place]. Cognitive Decline: Concern for some underlying cognitive decline at baseline vs mild delirium in post-op state. Monitor closely, limit narcotics as able. DVT Prophylaxis: SCDs - per primary care team. Code Status: FULL CODE PCP: Karely Frankel DO Disposition: Admitted in Med/Surg - discharge planning as per primary care team. PT/OT both recommending inpatient rehabilitation stay at time of discharge. CM involved and working to get the patient placement. Referral was made to [facility] in [place] - waiting to hear back. We will follow the patient with you during their hospital stay. You can reach a member of the [facility] Hospitalist Team 03/03 via [employer]. Patient seen in collaboration with Dr. Arellano. Please see addendum. I spent a total of 45 minutes coordinating, documenting, and providing care for this patient excluding time spent in the performance of separately billed services. This included personally reviewing all current laboratories and imaging studies, medical reconciliation, outpatient chart review and discussion with specialists. This chart was completed in part utilizing Speech Voice Recognition Software. Grammatical errors, random word insertions, pronoun errors, and incomplete sentences are an occasional consequence of this system due to software limitations, ambient noise, and hardware issues. Any formal questions or concerns about the content, text, or information contained within the body of this dictation should be directly addressed to the provider for clarification. Admission and Anticipated Discharge Date Admission Date: May 11, 2024 Supervising Physician Co-Signing Physician Notes Pt is a 74 y/o male POD #3 s/p lumbar decompression with bilateral medial facetectomies and foraminotomies L2-L3, L3-L4, L4-L5 and L5-S1 and posterior spinal fusion L2-S1 by Dr. Singh. Pt seen as a f/u for medical management. Pt seen and examined at bedside. His pain is under good control at present. He denies CP, SOB, nausea or emesis. I spent 10 minutes in care coordination of this post op patient. I agree with BARRINGTON Diego's assessment and documentation. Thank you Dr. Singh for the consult. Subjective No acute events overnight. Patient denies any pain at this time, was sitting up in the chair at bedside. Tolerated breakfast without any issue. Passing gas, however no BM yet. Very eager to go home when able. Review of Systems Review of Systems: At least ten systems reviewed and negative, except as noted in the subjective section. Physical Exam Physical Exam: General: WD/WN, vitals as above, NAD, very talkative, impulsive behavior. A+Ox3, euthymic affect. HEENT: Normocephalic, atraumatic. PERRL, conjunctivae normal, anicteric sclerae, oropharynx normal. Respiratory: Normal respiratory effort, lungs clear to auscultation, no wheeze, rales, rhonchi. No accessory muscle use. Cardiovascular: Regular rate, rhythm, no murmur, normal peripheral pulses, trace BLE edema. Vessels: No JVD. Abdomen/GI: Normal bowel sounds, soft, nontender, no hepatosplenomegaly. Extremities/Musculoskeletal: No cyanosis or clubbing, extremities motor strength intact, moves all extremities. Neurologic: EOMI, no focal deficits, CN's II-XI not formally tested but appear grossly intact bilaterally. Skin: No rashes, normal color, warm/dry. JULIAN drain x 1 intact with good serosanguineous output. Surgical dressing saturated. Results & Data Results & Data Vital Signs (Past 12 Hours) Vital Signs Temp Pulse Resp BP Pulse Ox O2 Del Method 05/13/24 10:17 111/65 05/13/24 07:50 36.6 C 89 16 100/60 94 Room Air Laboratory Results Short CBC 05/13/24 Range/Units 07:52 WBC 14.20 H (4.8-10.8) K/ul Hgb 10.2 L (14.0-18.0) g/dl Hct 29.5 L (42.0-52.0) % Plt Count 320 (130-400) K/uL BMP 05/13/24 07:52 Sodium 135 L Potassium 4.2 Chloride 99 Carbon Dioxide 31 BUN 14 Creatinine 1.01 Glucose 99 Calcium 9.2
[2024-05-14 07:29] LABS: Hematocrit (blood only) 27.7 % (42.0-52.0); Hemoglobin 9.1 g/dl (14.0-18.0); Mean Corpuscular Hemoglobin 31.7 pg (25.0-34.0); Mean Corpuscular Hgb Conc 32.9 g/dL (32.0-36.0); Mean Corpuscular Volume 96.5 fL (80.0-100.0); Mean Platelet Volume 10.2 fL (9.4-12.4); Platelet Count 287 K/uL (130-400); RDW Coefficient of Variation 12.2 % (11.5-14.5); RDW Standard Deviation 43.1 fL (36.4-46.3); Red Blood Count 2.87 M/uL (4.70-6.10); White Blood Count 11.33 K/ul (4.8-10.8)
[2024-05-14 07:47] LABS: BUN Creatinine Ratio 15.8 (10-20); Calcium 8.9 mg/dl (8.6-10.3); Creatinine Clr Calc Pharmacy 64.2 ml/min; Magnesium 1.9 mg/dl (1.7-2.4); Phosphorus 2.9 mg/dl (2.5-4.9); Potassium 4.3 mmol/L (3.5-5.1)
--- NOTE | 2024-05-14 10:06 | Orthopedic Progress Note ---
Date of Service May 14, 2024 Assessment & Plan (1) Neurogenic claudication due to lumbar spinal stenosis: Plan: At this time we will continue physical therapy plan for rehab placement as soon as today if bed available. Admission and Anticipated Discharge Date Admission Date: May 11, 2024 Subjective Back pain controlled leg pain improved Physical Exam Physical Exam: Patient is currently in bed. Is comfortable. Good strength testing. Results & Data Vital Signs (Past 12 Hours) Vital Signs Temp Pulse Pulse Resp BP Pulse Ox O2 Del Method 05/14/24 08:08 36.5 C 76 18 125/74 97 Room Air 05/14/24 01:46 Room Air 05/13/24 22:08 36.4 C L 74 18 142/69 H 96 Room Air Queries Orthopedic Spine Acute Posthemorrhagic Anemia: Yes
--- NOTE | 2024-05-14 14:52 | Hospitalist Progress Note ---
Date of Service May 14, 2024 Assessment & Plan (1) Neurogenic claudication due to lumbar spinal stenosis: (2) S/P spinal surgery: (3) Acute blood loss as cause of postoperative anemia: Plan Riaz Jones is a 74y/o M with PMHx of spinal stenosis of lumbar region with neurogenic claudication, peripheral edema and other medical problems listed below who underwent lumbar decompression with bilateral medial facetectomies and foraminotomies L2-L3, L3-L4, L4-L5 and L5-S1 and posterior spinal fusion L2-S1 performed by Dr. Singh on 05/11/24. He was referred to our team for post- operative medical management. 05/14/24 Spoke with . [facility] in [place] can offer the patient a bed pending insurance authorization. Order to remove JULIAN drain prior to discharge was placed by Dr. Singh. Patient can be accepted over the weekend at [facility]. Likely discharge tomorrow. Neurogenic Claudication 2/2 Lumbar Spinal Stenosis S/P Spinal Surgery: POD #3 s/p lumbar decompression with bilateral medial facetectomies and foraminotomies L2-L3, L3-L4, L4-L5 and L5-S1 and posterior spinal fusion L2-S1 with Dr. Singh. EBL: 450mL & Pre-Op Hgb: 13.4 [04/29/24] Per ortho for pain control, wound care, anticoagulation and activities. Continue incentive spirometry, PT/OT when appropriate as per ortho team. Monitor H/H closely for acute blood loss anemia and transfuse blood products PRN. Patient stopped gabapentin 2 weeks ago at home - discontinued. Holding Cannabis cream. Post-Operative Acute Blood Loss Anemia: Likely dilutional component as well. Pre-op Hgb was 13.4 as per above. Hgb was 10.2 yesterday. Hgb is 9.1 today, starting iron supplementation given good BM habits. Will continue to monitor. Peripheral Edema: Continue daily Lasix. Impulsive Behavior: Patient with impulsiveness working with therapy and not following directions. Apparently this is his baseline and he requires frequent redirection. UDS + for opiate, fentanyl and benzo; however, this was taken post-operatively so likely indicative of intraoperative anesthesia/analgesia. Per PT/OT notes today, patient was educated multiple times on spinal precautions but even with education and frequent reminders he was still bending down and twisting at the waist. Unsafe for patient to go home and PT/OT both recommending inpatient rehabilitation stay at time of discharge. Cognitive Decline: Concern for some underlying cognitive decline at baseline vs mild delirium in post-op state. Monitor closely, limit narcotics as able. DVT Prophylaxis: SCDs - per primary care team. Code Status: FULL CODE PCP: Karely Frankel, Disposition: Admitted in Med/Surg - likely will be discharged to [facility] in [place] tomorrow, insurance authorization pending. We will follow the patient with you during their hospital stay. You can reach a member of the [facility] Hospitalist Team 03/03 via [employer]. Patient seen in collaboration with Dr. Arellano. Please see addendum. I spent a total of 35 minutes coordinating, documenting, and providing care for this patient excluding time spent in the performance of separately billed services. This included personally reviewing all current laboratories and imaging studies, medical reconciliation, outpatient chart review and discussion with specialists. This chart was completed in part utilizing Speech Voice Recognition Software. Grammatical errors, random word insertions, pronoun errors, and incomplete sentences are an occasional consequence of this system due to software limitations, ambient noise, and hardware issues. Any formal questions or concerns about the content, text, or information contained within the body of this dictation should be directly addressed to the provider for clarification. Admission and Anticipated Discharge Date Admission Date: May 11, 2024 Supervising Physician Co-Signing Physician Notes Pt is a 74 y/o male POD #3 s/p lumbar decompression with bilateral medial facetectomies and foraminotomies L2-L3, L3-L4, L4-L5 and L5-S1 and posterior spinal fusion L2-S1 by Dr. Singh. Pt seen as a f/u for medical management. Pt seen and examined at bedside. His pain is under good control at present. He denies CP, SOB, nausea or emesis. I spent 10 minutes in care coordination of this post op patient. I agree with BARRINGTON Diego's assessment and documentation. Thank you Dr. Singh for the consult. total time spent 7 min Subjective Patient was participating in PT this morning. Reports good pain control, has had 2 BMs since surgery. Review of Systems Review of Systems: At least ten systems reviewed and negative, except as noted in the subjective section. Physical Exam Physical Exam: General: WD/WN, vitals as above, NAD, very talkative, impulsive behavior. A+Ox3, euthymic affect. HEENT: Normocephalic, atraumatic. PERRL, conjunctivae normal, anicteric sclerae, oropharynx normal. Respiratory: Normal respiratory effort, lungs clear to auscultation, no wheeze, rales, rhonchi. No accessory muscle use. Cardiovascular: Regular rate, rhythm, no murmur, normal peripheral pulses, trace BLE edema. Vessels: No JVD. Abdomen/GI: Normal bowel sounds, soft, nontender, no hepatosplenomegaly. Extremities/Musculoskeletal: No cyanosis or clubbing, extremities motor strength intact, moves all extremities. Neurologic: EOMI, no focal deficits, CN's II-XI not formally tested but appear grossly intact bilaterally. Skin: No rashes, normal color, warm/dry. JULIAN drain x 1 intact with good serosanguineous output. Surgical dressing intact. Results & Data Results & Data Vital Signs (Past 12 Hours) Vital Signs Temp Pulse Resp BP Pulse Ox O2 Del Method 05/14/24 08:08 36.5 C 76 18 125/74 97 Room Air Laboratory Results Short CBC 05/14/24 Range/Units 06:45 WBC 11.33 H (4.8-10.8) K/ul Hgb 9.1 L (14.0-18.0) g/dl Hct 27.7 L (42.0-52.0) % Plt Count 287 (130-400) K/uL BMP 05/14/24 06:45 Sodium 136 Potassium 4.3 Chloride 100 Carbon Dioxide 31 BUN 16 Creatinine 1.01 Glucose 103 H Calcium 8.9
[2024-05-14 15:27] LABS: 7-Aminoclonaz, Confirm NEGATIVE ng/mL (<25); Codeine Urine NEGATIVE ng/mL (<50); Fentanyl, Urine 68.2 ng/mL (<0.5); Hydro-Alp Ur, GC/MS NEGATIVE ng/mL (<25); Hydrocodone Urine NEGATIVE ng/mL (<50); Hydromor Urine 1110 ng/mL (<50); Hydroxyethylflurazepam, Conf NEGATIVE ng/mL (<50); Hydroxymidazolam Ur, GC/MS >2000 ng/mL (<50); Hydroxytriazolam NEGATIVE ng/mL (<50); Lorazepam, Ur GC/MS NEGATIVE ng/mL (<50); Morphine Urine NEGATIVE ng/mL (<50); Nordiazepam, Confirm NEGATIVE ng/mL (<50); Norfentanyl, Urine 81.4 ng/mL (<0.5); Norhydrocodone Conf Ur NEGATIVE ng/mL (<50); Noroxycodone Urine NEGATIVE ng/mL (<50); Oxazepam Ur, GC/MS NEGATIVE ng/mL (<50); Oxycodone Urine NEGATIVE ng/mL (<50); Oxymorph Urine NEGATIVE ng/mL (<50); Temazepam, Confirm NEGATIVE ng/mL (<50); medMATCH Fentanyl, Urine DNR; medMATCH Norfentanyl, Urine DNR
[2024-05-15 07:15] LABS: Hematocrit (blood only) 27.5 % (42.0-52.0); Mean Corpuscular Hemoglobin 31.8 pg (25.0-34.0); Mean Corpuscular Hgb Conc 32.7 g/dL (32.0-36.0); Mean Corpuscular Volume 97.2 fL (80.0-100.0); Mean Platelet Volume 10.2 fL (9.4-12.4); Platelet Count 316 K/uL (130-400); RDW Coefficient of Variation 12.3 % (11.5-14.5); RDW Standard Deviation 43.2 fL (36.4-46.3); Red Blood Count 2.83 M/uL (4.70-6.10); White Blood Count 11.33 K/ul (4.8-10.8)
[2024-05-15 07:32] LABS: BUN Creatinine Ratio 17.4 (10-20); Creatinine Clr Calc Pharmacy 70.4 ml/min; Magnesium 1.9 mg/dl (1.7-2.4); Potassium 4.1 mmol/L (3.5-5.1)
[2024-05-15] MEDS: FERROUS SULFATE 325 MG TAB PO SCH (08:45)
--- NOTE | 2024-05-15 09:13 | Discharge Summary ---
Date of Service May 15, 2024 Admission HPI Per Admitting Provider This is a 74-year-old male who presents above-mentioned diagnosis of failed course of nonoperative care is here for surgical invention. Principal Diagnosis Lumbar spinal stenosis with neurogenic claudication Discharge Data Allergies Allergy/AdvReac Type Severity Reaction Status Date / Time No Known Allergies Allergy Verified 05/11/24 09:04 Consultations 05/11/24 14:51 Consult Hospitalist Routine Procedures Performed Operation Date: 05/11/24 10:05 Actual Procedures p L2-S1 Decompression and Fusion, Spinal Cord Monitoring(Not Applicable) - Navneet Singh DO Ordered Studies 05/11/24 10:05 FL lumbar spine 2-3V Routine Hospital Course (1) Neurogenic claudication due to lumbar spinal stenosis: Patient underwent multilevel lumbar decompression fusion tolerated this well was taken to orthopedic for postoperative. Postop he progressed appropriately with therapy. JULIAN drain decreasing. Good strength testing. Pain well-controlled. Simply discharged to rehab. Discharge orders and instructions from the chart for further review. 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 You may walk to your tolerance. It is good exercise for your legs and back. Expect some back and intermittent leg aches and pains. 2. You may perform "counter-top" level activities (make a sandwich, jane with a project, etc.). 3. No bending or lifting of more than 10 pounds or back twisting of any nature (roll like a log when turning in bed). 4. You may ride in a car for 20-30 minutes at a time. No driving until after your first visit with your doctor. 5. Frequent changes of position and restricting sitting to 30 minutes at a time will help limit the amount of back spasms and stiffness you may experience. 6. You may discontinue the use of ambulatory aids (cane, crutches, etc.) once y our strength and confidence allow. 7. You may provider contracting consultant the shower and let water strike your incision when you arrive home at least once daily. Do not take a tub bath, sit in a hot tub or go into a swimming pool until after your first recheck in the office. SPECIAL CARE INSTRUCTIONS: VERY IMPORTANT TO READ AND REVIEW A. Your surgical incision has been closed with a cosmetic suture under the skin that will dissolve in about 6 weeks. In 14 days, you can use a pair of clean scissors and cut the suture that is left outside of the skin at the ends of your incision. 1. The small skin tapes can be removed 7 days after surgery if they have not fallen off by that point. 2. You may keep the wound open to air as much as possible to promote healing after post-op day number 5 unless told otherwise by your doctor. 3. If you think the wound looks like it is becoming infected (redness or worsening drainage) and/or you are experiencing fever, chill or worsening back pain and muscle spasms, contact the office so that we may evaluate you as soon as possible. B. Complications are uncommon, but please contact us if you have any signs or symptoms of: 1. wound infection (fever higher than 102.5 degrees F, redness, separation of wound, drainage, or increasing pain from the incision) 2. blood clots in legs (pain, swelling, redness and warmth in legs) 3. urinary tract infection (fever higher than 102.5 degrees F, burning upon urination or increased frequency of urination) 4. nerve problems (inability to walk on your toes or heels, numbness, loss of bowel or bladder control) 5. any other symptoms that concern you C. Please call the office at if you have any concerns or questions about your operation or recovery. D. No smoking! Smoking drastically decreases the chance of a solid fusion. E. Do not take any anti-inflammatory medications (Indocin, Advil, Motrin, Aspirin, Naprosyn, etc.) as these may inhibit the chance of a solid fusion. Tylenol is okay to take for pain. MANAGING PAIN AFTER SPINAL SURGERY 1. Narcotic medication is intended for short-term use and will be provided for surgical pain. Surgical pain usually lasts for a period of 4-6 weeks. Narcotic medication includes Percocet, Vicodin, Darvocet, Tylenol #3 or Lortab. 2. Longer-term pain is more appropriately treated with non-narcotic medication such as Tylenol ES. 3. Muscle spasm is not appropriately treated with narcotics. Muscle relaxers such as Soma, Flexeril or Skelaxin can be used along with Tylenol ES. 4. Remember that we all live with some "aches and pains". This is not unusual or uncommon after an injury or as we get older. a. Back pain is expected and may include muscle spasms for 4 to 6 weeks after surgery. The pain should gradually improve. If the pain worsens for no apparent reason, please contact the office. b. Intermittent leg pain may also be experienced and should not be concerned about unless it worsens for no apparent reason. If so, please contact the office. 5. We will provide appropriate medication within the normal guidelines of their prescribed use. We will also be very cautious and aware of potential abuse and extended duration of patients' medication needs. a. Pain medications are for your comfort and to assist with sleep and rest so that the tissue can heal. They are not provided in order to return to normal activity and should not be used through the day. To do so or worsening pain at night can result from ongoing tissue damage and development of tolerance to the prescribed medicine. 6. Please allow 2-3 days to process refills. Prescriptions will not be mailed but must be picked up at the office. FOLLOW UP VISIT: Keep your scheduled follow-up appointment. Any questions, please call the office at . Pending Studies at Discharge: No Stand-Alone Forms: My [facility] Skilled Items Patient informed of condition?: Yes DNR: No Discharge Level of Care: Acute rehab Communicable Disease: No Discharge Prognosis: Improving Lines: None Urinary Catheter: No Medications and DC Order Prescriptions: New tramadol 50 mg tablet 50 mg PO Q6H PRN (Reason: pain, moderate) Qty: 30 0RF oxycodone 5 mg tablet 5 mg PO Q6H PRN (Reason: pain) Qty: 30 0RF Continued furosemide 40 mg Tablet 20 mg PO QAM ibuprofen 200 mg Capsule 200 mg PO Q6H PRN (Reason: Pain) acetaminophen [Tylenol Extra Strength] 500 mg Tablet 500 mg PO Q4H Organic Cannabis Cream 1 dose topical DAILY Discharge Orders: Discharge Order (Routine); Ordered 05/15/24 Ordered By: Navneet Singh Admission Data Admit Date/Time: 05/11/24 13:14 Attending Provider: Navneet Singh Admit Provider: Navneet Singh Primary Care Provider: PCP,NO Other Providers: Ross Castano Rishikesh
--- NOTE | 2024-05-15 15:04 | Hospitalist Progress Note ---
Date of Service May 15, 2024 Assessment & Plan (1) Neurogenic claudication due to lumbar spinal stenosis: (2) S/P spinal surgery: (3) Acute blood loss as cause of postoperative anemia: Plan This is a 74y/o M with PMHx of spinal stenosis of lumbar region with neurogenic claudication, peripheral edema and other medical problems listed below who underwent lumbar decompression with bilateral medial facetectomies and foraminotomies L2-L3, L3-L4, L4-L5 and L5-S1 and posterior spinal fusion L2-S1 performed by Dr. Singh on 05/11/24. Neurogenic Claudication 2/2 Lumbar Spinal Stenosis S/P Spinal Surgery: S/p lumbar decompression with bilateral medial facetectomies and foraminotomies L2-L3, L3-L4, L4-L5 and L5-S1 and posterior spinal fusion L2-S1 with Dr. Singh on 05/11 EBL: 450mL & Pre-Op Hgb: 13.4 [04/29/24] Per ortho for pain control, wound care, anticoagulation and activities Continue incentive spirometry, PT/OT when appropriate as per ortho team Monitor H/H closely for acute blood loss anemia and transfuse blood products PRN Patient stopped gabapentin 2 weeks ago at home - discontinued. Holding Cannabis cream Per PT eval, recommend acute rehab for assistance with ROMS and ambulation given impulsivity requiring frequent redirection Unsafe for patient to go home and PT/OT - long discussion with patient today, agreeable to wait for rehab placement CM made referral to [facility] in [place] Post-Operative Acute Blood Loss Anemia Pre-op Hgb was 13.4, hgb 9.0 today Monitor with daily CBC Peripheral Edema: Continue daily Lasix Cognitive Decline: Concern for some underlying cognitive decline at baseline vs mild delirium in post-op state. Monitor closely, limit narcotics as able DVT Prophylaxis: SCDs per primary care team Code Status: FULL CODE PCP: Karely Frankel, Disposition: Admitted in Med/Surg - discharge planning as per primary care team. PT/OT both recommending inpatient rehabilitation stay at time of discharge. CM involved and working to get the patient placement. Referral was made to [facility] in [place] - waiting to hear back. We will follow the patient with you during their hospital stay. You can reach a member of the [facility] Hospitalist Team 03/03 via [employer]. I spent a total of 45 minutes coordinating, documenting, and providing care for this patient excluding time spent in the performance of separately billed services. This included personally reviewing all current laboratories and imaging studies, medical reconciliation, outpatient chart review and discussion with specialists. Admission and Anticipated Discharge Date Admission Date: May 11, 2024 Subjective Patient evaluated in 354 bed 2. Awaiting insurance Auth for rehab placement. Per call from RN, patient became frustrated today with attempt to leave AMA. Upon further discussion with patient regarding benefit of rehab in order to ensure healing of spinal fusion, patient agreeable to stay. Updated daughter over the phone. Denies any acute changes. Pain controlled, sitting in bedside chair. No fever, chills, chest pain, shortness of breath, nausea, vomiting, abdominal pain, dysuria, diarrhea or constipation. Review of Systems Review of Systems: At least ten systems reviewed and negative except as noted in the HPI. Physical Exam Physical Exam: General Appearance: WD/WN, vitals as above, NAD, sitting in bedside chair, impulsive HEENT: Normocephalic, atraumatic Lung: Clear to Auscultation bilaterally Heart: Regular rate, regular rhythm, no murmurs, rubs, or gallops Abdomen: Soft, NT, ND +BS x 4 Extremities: Spinal dressing c/d/i. No edema Skin: Warm, no rash Results & Data Results & Data Vital Signs (Past 12 Hours) Vital Signs Temp Pulse Resp BP Pulse Ox O2 Del Method 05/15/24 07:11 36.6 C 76 18 150/99 H 98 Room Air Laboratory Results Short CBC 05/15/24 Range/Units 06:19 WBC 11.33 H (4.8-10.8) K/ul Hgb 9.0 L (14.0-18.0) g/dl Hct 27.5 L (42.0-52.0) % Plt Count 316 (130-400) K/uL BMP 05/15/24 06:19 Sodium 138 Potassium 4.1 Chloride 102 Carbon Dioxide 31 BUN 16 Creatinine 0.92 Glucose 99 Calcium 9.0 Diagnostic Findings Short CBC 05/15/24 Range/Units 06:19 WBC 11.33 H (4.8-10.8) K/ul Hgb 9.0 L (14.0-18.0) g/dl Hct 27.5 L (42.0-52.0) % Plt Count 316 (130-400) K/uL BMP 05/15/24 06:19 Sodium 138 Potassium 4.1 Chloride 102 Carbon Dioxide 31 BUN 16 Creatinine 0.92 Glucose 99 Calcium 9.0
[2024-05-15] MEDS ORDERED: ACETAMINOPHEN 500 MG TAB PO STA (17:52)
[2024-05-15] MEDS: traMADol HCL 50 MG TABLET PO PRN (19:25)
--- NOTE | 2024-05-15 19:48 | CT Scan Report ---
CT OF THE HEAD WITHOUT CONTRAST CLINICAL HISTORY: sudden/severe headache COMPARISON STUDY: No previous studies for comparison. CT DOSE: 1312.65 mGy.cm TECHNIQUE: Helical axial images of the head were obtained without IV contrast. Automated exposure con trol was utilized for the study. A dose lowering technique was utilized adhering to the principles o f ALARA. FINDINGS: No acute intracranial hemorrhage, midline shift or mass effect is present. White matter hyp odensities are suggestive of small vessel disease. The ventricular system is unremarkable. The basal cisterns are patent. No extra-axial collections are present. There are no findings to suggest acute d ural sinus thrombosis or acute territorial infarct. No significant calvarial abnormalities are presen t. Visualized portions of the sinuses and mastoid air cells are clear. IMPRESSION: No acute intracranial findings. ACT 112: Negative or not required by law. Electronically signed by: Balbir Dooley M.D. 05/15/2024 7:46 PM
--- NOTE | 2024-05-15 19:57 | Communication Note ---
Date of Service: May 15, 2024 seen resting in bed, sitting up not in distress reports lower back pain, intensified this evening, Tramadol starting to relieve pain denies lower extremity weakness, paresthesias reports mild frontal headache- no neurologic symptoms CT head: pending White matter hypodensities are suggestive of small vessel disease. declined ice pack, heating pad continue PRN Meds discussed with RN recommend ASA 81mg po daily, if without contraindication, for small vessel disease found on CT head work up for dyslipidemia Maynor Michelle MD
[2024-05-15] MEDS: diphenhydrAMINE Capsule 25 MG CAP PO PRN (20:25)
[2024-05-16 06:44] LABS: Hematocrit (blood only) 31.3 % (42.0-52.0); Hemoglobin 10.1 g/dl (14.0-18.0); Mean Corpuscular Hgb Conc 32.3 g/dL (32.0-36.0); Mean Corpuscular Volume 99.1 fL (80.0-100.0); Mean Platelet Volume 9.6 fL (9.4-12.4); Platelet Count 399 K/uL (130-400); RDW Coefficient of Variation 12.4 % (11.5-14.5); RDW Standard Deviation 44.5 fL (36.4-46.3); Red Blood Count 3.16 M/uL (4.70-6.10); White Blood Count 11.12 K/ul (4.8-10.8)
[2024-05-16 07:08] LABS: BUN Creatinine Ratio 14.8 (10-20); Creatinine Clr Calc Pharmacy 73.6 ml/min; Potassium 3.6 mmol/L (3.5-5.1)
--- NOTE | 2024-05-16 07:48 | Orthopedic Progress Note ---
Date of Service May 16, 2024 Assessment & Plan (1) Neurogenic claudication due to lumbar spinal stenosis: Plan: Patient is doing well postoperative day #5. We are awaiting discharge to half-way facility when a bed is available. Will continue with GI DVT prophylaxis and pain control. He will continue to work with physical therapy while he is here in the hospital. Admission and Anticipated Discharge Date Admission Date: May 11, 2024 Subjective Patient was seen bedside in bed 354. He states he is feeling okay today. He still has back pain but the legs are doing better. He has been up and walking. We are awaiting discharge to a half-way facility at this point. He denies any other numbness, tingling, or paresthesias. Physical Exam Physical Exam: On exam the patient is alert. He answers questions appropriately. His abdomen soft and nontender his calves are supple and nontender. His strength and sensation are both intact. His dressing is clean dry and intact. Results & Data Vital Signs (Past 12 Hours) Vital Signs Temp Pulse Resp BP Pulse Ox O2 Del Method 05/15/24 20:39 36.5 C 78 16 156/74 H 97 Room Air
--- NOTE | 2024-05-16 13:59 | Hospitalist Progress Note ---
Date of Service May 16, 2024 Assessment & Plan (1) Neurogenic claudication due to lumbar spinal stenosis: (2) S/P spinal surgery: (3) Acute blood loss as cause of postoperative anemia: Plan This is a 74y/o M with PMHx of spinal stenosis of lumbar region with neurogenic claudication, peripheral edema and other medical problems listed below who underwent lumbar decompression with bilateral medial facetectomies and foraminotomies L2-L3, L3-L4, L4-L5 and L5-S1 and posterior spinal fusion L2-S1 performed by Dr. Singh on 05/11/24. Neurogenic Claudication 2/2 Lumbar Spinal Stenosis S/P Spinal Surgery: S/p lumbar decompression with bilateral medial facetectomies and foraminotomies L2-L3, L3-L4, L4-L5 and L5-S1 and posterior spinal fusion L2-S1 with Dr. Singh on 05/11 EBL: 450mL & Pre-Op Hgb: 13.4 (04/29/24) Per ortho for pain control, wound care, anticoagulation and activities Continue incentive spirometry, PT/OT when appropriate as per ortho team Monitor H/H closely for acute blood loss anemia and transfuse blood products PRN Patient stopped gabapentin 2 weeks ago at home - discontinued. Holding Cannabis cream Per PT eval, recommend acute rehab for assistance with ROMS and ambulation given impulsivity requiring frequent redirection Unsafe for patient to go home and PT/OT - long discussion with patient today, agreeable to wait for rehab placement CM made referral to [facility] in [place] - awaiting placement Post-Operative Acute Blood Loss Anemia Pre-op Hgb was 13.4, hgb 10.1 today Monitor with daily CBC Peripheral Edema: Continue daily Lasix Cognitive Decline: Concern for some underlying cognitive decline at baseline vs mild delirium in post-op state. Monitor closely, limit narcotics as able Headache -> resolved Developed 05/20 headache last evning, CT head ordered without acute findings Evidence of white matter hypodensities are suggestive of small vessel disease Denies headache today Recommend starting aspirin 81mg PO daily for small vessel disease found on CT head, fasting lipids for AM DVT Prophylaxis: SCDs per primary care team Code Status: FULL CODE PCP: Karely Frankel DO Disposition: Admitted in Med/Surg - discharge planning as per primary care team. PT/OT both recommending inpatient rehabilitation stay at time of discharge. CM involved and working to get the patient placement. Referral was made to [facility] in [place] - waiting to hear back. We will follow the patient with you during their hospital stay. You can reach a member of the [facility] Hospitalist Team 03/03 via [email or web address]. I spent a total of 40 minutes coordinating, documenting, and providing care for this patient excluding time spent in the performance of separately billed services. This included personally reviewing all current laboratories and imaging studies, medical reconciliation, outpatient chart review and discussion with specialists. Admission and Anticipated Discharge Date Admission Date: May 11, 2024 Subjective Patient was seen and examined in [facility]. Feeling okay today. Back pain with movement but headache resolved since last evening. No other changes. Awaiting discharge to SNF. No F/C, CP, SOB, N/V, and pain, dysuria or diarrhea. Bowel movement yesterday. Review of Systems Review of Systems: At least ten systems reviewed and negative except as noted in the HPI. Physical Exam Physical Exam: General Appearance: WD/WN, vitals as above, NAD, laying in bed, impulsive HEENT: Normocephalic, atraumatic Lung: Clear to Auscultation bilaterally Heart: Regular rate, regular rhythm, no murmurs, rubs, or gallops Abdomen: Soft, NT, ND +BS x 4 Extremities: Spinal dressing c/d/i. No edema Skin: Warm, no rash Results & Data Results & Data Vital Signs (Past 12 Hours) Vital Signs Temp Pulse Resp BP Pulse Ox O2 Del Method 05/16/24 07:05 36.8 C 89 18 122/73 99 Room Air
[2024-05-17] MEDS: ASPIRIN 81 MG ECTAB PO SCH (08:04)
[2024-05-17 08:29] VITALS: RESP 16
[2024-05-17 08:30] LABS: Chol HDL Ratio 4.2 (0-5)
--- NOTE | 2024-05-17 10:24 | Hospitalist Progress Note ---
Date of Service May 17, 2024 Assessment & Plan (1) Neurogenic claudication due to lumbar spinal stenosis: (2) S/P spinal surgery: (3) Acute blood loss as cause of postoperative anemia: Plan This is a 74y/o M with PMHx of spinal stenosis of lumbar region with neurogenic claudication, peripheral edema and other medical problems listed below who underwent lumbar decompression with bilateral medial facetectomies and foraminotomies L2-L3, L3-L4, L4-L5 and L5-S1 and posterior spinal fusion L2-S1 performed by Dr. Singh on 05/11/24. Neurogenic Claudication 2/2 Lumbar Spinal Stenosis S/P Spinal Surgery: S/p lumbar decompression with bilateral medial facetectomies and foraminotomies L2-L3, L3-L4, L4-L5 and L5-S1 and posterior spinal fusion L2-S1 with Dr. Singh on 05/11 EBL: 450mL & Pre-Op Hgb: 13.4 (04/29/24) Per ortho for pain control, wound care, anticoagulation and activities Continue incentive spirometry, PT/OT when appropriate as per ortho team Monitor H/H closely for acute blood loss anemia and transfuse blood products PRN Patient stopped gabapentin 2 weeks ago at home - discontinued. Holding Cannabis cream Per PT eval, recommend acute rehab for assistance with ROMS and ambulation given impulsivity requiring frequent redirection Unsafe for patient to go home and PT/OT - long discussion with patient today, agreeable to wait for rehab placement CM made referral to [facility], [place], operated by [facility] in [place] - awaiting placement Post-Operative Acute Blood Loss Anemia Pre-op Hgb was 13.4, hgb 10.1 today Monitor with daily CBC Peripheral Edema: Continue daily Lasix Cognitive Decline: Concern for some underlying cognitive decline at baseline vs mild delirium in post-op state. Monitor closely, limit narcotics as able Headache -> resolved denies MOYA Recommend starting aspirin 81mg PO daily for small vessel disease found on CT head, fasting lipids WNL DVT Prophylaxis: SCDs per primary care team Code Status: FULL CODE PCP: Karely Frankel, Disposition: Admitted in Med/Surg - awaiting rehab, pt medically stable when rehab bed available Thank you for this consultation. We will follow the patient with you during their hospital stay. You can reach a member of the [facility] Hospitalist Team 03/03 via hospitalist role on tiger text. I spent a total of 39 minutes coordinating, documenting, and providing care for this patient excluding time spent in the performance of separately billed services. This included personally reviewing all current laboratories and imaging studies, medical reconciliation, outpatient chart review and discussion with specialists. Admission and Anticipated Discharge Date Admission Date: May 11, 2024 Subjective F/U lumbar surgery. NAEO. Pt wishes to be discharged home. He denies f/c/s, chest pain, sob, n/v/d. He reports moving bowels. He is awaiting rehab, but states he could wait at home. Review of Systems Review of Systems: All systems reviewed & are unremarkable except as noted in HPI & below Physical Exam Physical Exam: Gen: WD/WN, Sitting up in bed, A&O x3 HEENT: Normocephalic, atraumatic, conjunctivae moist, sclerae anicteric, mucous membranes moist, poor dentition Lung: Clear to Auscultation bilaterally, no wheezes/rales/rhonchi Heart: Regular rate, regular rhythm, no murmurs, rubs, or gallops Abdomen: Soft, NT, ND +BS x 4 Extremities: No edema, lumbar dressing CDI Skin: Warm, no rash, negative turgor. Results & Data Results & Data Vital Signs (Past 12 Hours) Vital Signs Temp Pulse Resp BP BP Pulse Ox O2 Del Method 05/17/24 08:14 36.8 C 91 H 16 132/74 94 Room Air 05/16/24 23:16 36.7 C 78 16 129/73 99 Room Air Laboratory Results fasting lipid panel reviewed and independently interpreted Trig 140, total chol 137, LDL 76 , HDL 33 Medications Administered Current Inpatient Medications Acetaminophen (Acetaminophen 500 Mg Tab) 1,000 mg PO Q8H WILLIAM Stop: 06/11/24 15:29 Last Admin: 05/17/24 08:03 Dose: 1,000 mg Al Hydrox/Mg Hydrox/Simethicone (Aluminum/Magnesium Susp 30 Ml Udc) 30 ml PO Q6H PRN PRN Reason: Dyspepsia Stop: 06/10/24 14:50 Aspirin (Aspirin 81 Mg Ectab) 81 mg PO QAM WILLIAM Stop: 06/16/24 08:59 Last Admin: 05/17/24 08:04 Dose: 81 mg Bisacodyl (Bisacodyl 10 Mg Supp) 10 mg [place] DAILY PRN PRN Reason: Constipation Stop: 06/10/24 14:50 Diphenhydramine HCl (Diphenhydramine Capsule 25 Mg Cap) 25 mg PO Q6H PRN PRN Reason: Allergic Rhinitis/Insomnia Stop: 06/10/24 14:50 Last Admin: 05/15/24 20:25 Dose: 25 mg Famotidine (Famotidine 20 Mg Tab) 20 mg PO Q12H PRN PRN Reason: Dyspepsia Stop: 06/10/24 14:50 Ferrous Sulfate (Ferrous Sulfate 325 Mg Tab) [facility] Stop: 06/14/24 08:59 Last Admin: 05/17/24 08:05 Dose: 325 mg Furosemide (Furosemide 20 Mg Tab) 20 mg PO [facility] Stop: 06/11/24 08:59 Last Admin: 05/17/24 08:05 Dose: 20 mg Hydromorphone HCl (Hydromorphone Inj 0.5 Mg/0.5 Ml Syr) 0.5 mg IV Q3H PRN PRN Reason: MODERATE Pain (Scale 4,5,6) & Pre PT Stop: 05/25/24 14:50 Last Admin: 05/11/24 19:54 Dose: 0.5 mg Hydromorphone HCl (Hydromorphone Inj 1 Mg/Ml Syringe) 1 mg IV Q3H PRN PRN Reason: SEVERE Pain (Scale 7,8,9,10) Stop: 05/25/24 14:50 Promethazine HCl (Phenergan) 12.5 mg in 50.5 mls @ 202 mls/hr IV Q6H PRN PRN Reason: Nausea And Vomiting Stop: 06/10/24 14:50 Influenza Virus Vaccine Quadrival (Do Not Administer Flu Vaccine) 1 each N/A PRN PRN PRN Reason: Notification Stop: 06/10/24 14:50 Magnesium Hydroxide (Magnesium Hydroxide Susp 30 Ml Udc) 30 ml PO Q24H PRN PRN Reason: Constipation Stop: 06/10/24 14:50 Metoclopramide HCl (Metoclopramide Hcl Inj 5 Mg/Ml 2 Ml Vial) 10 mg IV Q6H PRN PRN Reason: Nausea &/or Vomiting Stop: 06/10/24 14:50 Naloxone HCl (Naloxone Hcl 0.4 Mg/1 Ml Vial/Carp) 0.1 mg IV Q5M PRN PRN Reason: Oversedation/Resp depression Stop: 06/10/24 14:50 Ondansetron HCl (Ondansetron Inj 2 Mg/Ml 2 Ml Vial) 4 mg IV Q6H PRN PRN Reason: Nausea &/or Vomiting Stop: 06/10/24 14:50 Ondansetron HCl (Ondansetron 4 Mg Od Tab) 4 mg PO Q6H PRN PRN Reason: Nausea Stop: 06/10/24 14:50 Oxycodone HCl (Oxycodone Hcl Ir 5 Mg Tab (Immediate Release)) 5 - 10 mg PO Q4H PRN PRN Reason: Pain & Pre PT Stop: 05/25/24 14:50 Last Admin: 05/16/24 15:51 Dose: 10 mg Pneumococcal Polyvalent Vaccine (Do Not Administer Pneumococcal Vaccine) 1 each N/A PRN PRN PRN Reason: Notification Stop: 06/10/24 14:50 Senna/Docusate Sodium (Docusate Sodium/Senna 50/8.6mg Tab) 2 tab PO HS WILLIAM Stop: 06/10/24 20:59 Last Admin: 05/16/24 19:58 Dose: Not Given Sodium Biphosphate/Sodium Phosphate (Sod Phosphate/Sod Biphosphate Enema 132 Ml Btl) 132 ml [place] ONE PRN PRN Reason: Constipation Stop: 06/10/24 14:50 Tramadol HCl (Tramadol Hcl 50 Mg Tablet) 50 - 100 mg PO Q4H PRN PRN Reason: Moderate-Severe pain & Pre PT Stop: 06/10/24 14:50 Last Admin: 05/16/24 08:41 Dose: 100 mg
[2024-05-18 08:07] VITALS: BP 142/79; PULSE 77; TEMP 98.4; O2SAT 98
--- NOTE | 2024-05-18 08:45 | Orthopedic Progress Note ---
Date of Service May 18, 2024 Assessment & Plan (1) Neurogenic claudication due to lumbar spinal stenosis: Plan: At this time we are awaiting authorization from his insurance company for rehab placement. He is doing well otherwise from a medical and orthopedic standpoint. He is cleared for discharge when bed available. Admission and Anticipated Discharge Date Admission Date: May 11, 2024 Subjective Patient is tolerating physical therapy. His pain has been controlled. Physical Exam Physical Exam: Patient is neurologically intact. Results & Data Vital Signs (Past 12 Hours) Vital Signs Temp Pulse Resp BP Pulse Ox O2 Del Method 05/18/24 08:07 36.9 C 77 16 142/79 H 98 Room Air 05/17/24 20:57 36.7 C 74 16 147/79 H 99 Room Air Queries Orthopedic Spine Acute Posthemorrhagic Anemia: Yes
--- NOTE | 2024-05-18 11:24 | Hospitalist Progress Note ---
Date of Service May 18, 2024 Assessment & Plan (1) Neurogenic claudication due to lumbar spinal stenosis: (2) S/P spinal surgery: (3) Acute blood loss as cause of postoperative anemia: Plan This is a 74y/o M with PMHx of spinal stenosis of lumbar region with neurogenic claudication, peripheral edema and other medical problems listed below who underwent lumbar decompression with bilateral medial facetectomies and foraminotomies L2-L3, L3-L4, L4-L5 and L5-S1 and posterior spinal fusion L2-S1 performed by Dr. Singh on 05/11/24. Neurogenic Claudication 2/2 Lumbar Spinal Stenosis S/P Spinal Surgery: S/p lumbar decompression with bilateral medial facetectomies and foraminotomies L2-L3, L3-L4, L4-L5 and L5-S1 and posterior spinal fusion L2-S1 with Dr. Singh on 05/11 EBL: 450mL & Pre-Op Hgb: 13.4 (04/29/24) Per ortho for pain control, wound care, anticoagulation and activities Continue incentive spirometry, PT/OT when appropriate as per ortho team Monitor H/H closely for acute blood loss anemia and transfuse blood products PRN Patient stopped gabapentin 2 weeks ago at home - discontinued. Holding Cannabis cream Per PT eval, recommend acute rehab for assistance with ROMS and ambulation given impulsivity requiring frequent redirection Unsafe for patient to go home and PT/OT - long discussion with patient today, agreeable to wait for rehab placement D/C today to [facility] Post-Operative Acute Blood Loss Anemia Pre-op Hgb was 13.4, hgb 10.1 today Monitor with daily CBC Peripheral Edema: Continue daily Lasix Cognitive Decline/Impulsive behavior: Concern for some underlying cognitive decline at baseline, no formal diagnosis of dementia, but pt with intermittent impulsive behavior that requires frequent redirection Headache -> resolved denies MOYA Recommend starting aspirin 81mg PO daily for small vessel disease found on CT head, fasting lipids WNL DVT Prophylaxis: SCDs per primary care team Code Status: FULL CODE PCP: Karely Frankel, DO Disposition: D/C to rehab today Thank you for this consultation. We will follow the patient with you during their hospital stay. You can reach a member of the [facility] Hospitalist Team 03/03 via hospitalist role on tiger text. I spent a total of 35 minutes coordinating, documenting, and providing care for this patient excluding time spent in the performance of separately billed services. This included personally reviewing all current laboratories and imaging studies, medical reconciliation, outpatient chart review and discussion with specialists. Admission and Anticipated Discharge Date Admission Date: May 11, 2024 [facility]ive [facility] Offers no concerns. His back is sore, but improving. NAEO. Denies f/c/s, chest pain, sob, n/v/d. Review of Systems Review of Systems: All systems reviewed & are unremarkable except as noted in HPI & below Physical Exam Physical Exam: Gen: WD/WN, Sitting up in bed, A&O x3 HEENT: Normocephalic, atraumatic, conjunctivae moist, sclerae anicteric, mucous membranes moist, poor dentition Lung: Clear to Auscultation bilaterally, no wheezes/rales/rhonchi Heart: Regular rate, regular rhythm, no murmurs, rubs, or gallops Abdomen: Soft, NT, ND +BS x 4 Extremities: No edema, lumbar dressing CDI Skin: Warm, no rash, negative turgor. Results & Data Results & Data Vital Signs (Past 12 Hours) Vital Signs Temp Pulse Resp BP Pulse Ox O2 Del Method 05/18/24 08:07 36.9 C 77 16 142/79 H 98 Room Air Medications Administered Current Inpatient Medications Acetaminophen (Acetaminophen 500 Mg Tab) 1,000 mg PO Q8H [facility] Stop: 06/11/24 15:29 Last Admin: 05/18/24 07:22 Dose: 1,000 mg Al Hydrox/Mg Hydrox/Simethicone (Aluminum/Magnesium Susp 30 Ml Udc) 30 ml PO Q6H PRN PRN Reason: Dyspepsia Stop: 06/10/24 14:50 Aspirin (Aspirin 81 Mg Ectab) 81 mg PO QAM WILLIAM Stop: 06/16/24 08:59 Last Admin: 05/18/24 07:24 Dose: 81 mg Bisacodyl (Bisacodyl 10 Mg Supp) 10 mg [place] DAILY PRN PRN Reason: Constipation Stop: 06/10/24 14:50 Diphenhydramine HCl (Diphenhydramine Capsule 25 Mg Cap) 25 mg PO Q6H PRN PRN Reason: Allergic Rhinitis/Insomnia Stop: 06/10/24 14:50 Last Admin: 05/15/24 20:25 Dose: 25 mg Famotidine (Famotidine 20 Mg Tab) 20 mg PO Q12H PRN PRN Reason: Dyspepsia Stop: 06/10/24 14:50 Ferrous Sulfate (Ferrous Sulfate 325 Mg Tab) 325 mg PO [facility] Stop: 06/14/24 08:59 Last Admin: 05/18/24 07:24 Dose: 325 mg Furosemide (Furosemide 20 Mg Tab) 20 mg PO [facility] Stop: 06/11/24 08:59 Last Admin: 05/18/24 07:24 Dose: 20 mg Hydromorphone HCl (Hydromorphone Inj 0.5 Mg/0.5 Ml Syr) 0.5 mg IV Q3H PRN PRN Reason: MODERATE Pain (Scale 4,5,6) & Pre PT Stop: 05/25/24 14:50 Last Admin: 05/11/24 19:54 Dose: 0.5 mg Hydromorphone HCl (Hydromorphone Inj 1 Mg/Ml Syringe) 1 mg IV Q3H PRN PRN Reason: SEVERE Pain (Scale 7,8,9,10) Stop: 05/25/24 14:50 Promethazine HCl (Phenergan) 12.5 mg in 50.5 mls @ 202 mls/hr IV Q6H PRN PRN Reason: Nausea And Vomiting Stop: 06/10/24 14:50 Influenza Virus Vaccine Quadrival (Do Not Administer Flu Vaccine) 1 each N/A PRN PRN PRN Reason: Notification Stop: 06/10/24 14:50 Magnesium Hydroxide (Magnesium Hydroxide Susp 30 Ml Udc) 30 ml PO Q24H PRN PRN Reason: Constipation Stop: 06/10/24 14:50 Metoclopramide HCl (Metoclopramide Hcl Inj 5 Mg/Ml 2 Ml Vial) 10 mg IV Q6H PRN PRN Reason: Nausea &/or Vomiting Stop: 06/10/24 14:50 Naloxone HCl (Naloxone Hcl 0.4 Mg/1 Ml Vial/Carp) 0.1 mg IV Q5M PRN PRN Reason: Oversedation/Resp depression Stop: 06/10/24 14:50 Ondansetron HCl (Ondansetron Inj 2 Mg/Ml 2 Ml Vial) 4 mg IV Q6H PRN PRN Reason: Nausea &/or Vomiting Stop: 06/10/24 14:50 Ondansetron HCl (Ondansetron 4 Mg Od Tab) 4 mg PO Q6H PRN PRN Reason: Nausea Stop: 06/10/24 14:50 Oxycodone HCl (Oxycodone Hcl Ir 5 Mg Tab (Immediate Release)) 5 - 10 mg PO Q4H PRN PRN Reason: Pain & Pre PT Stop: 05/25/24 14:50 Last Admin: 05/16/24 15:51 Dose: 10 mg Pneumococcal Polyvalent Vaccine (Do Not Administer Pneumococcal Vaccine) 1 each N/A PRN PRN PRN Reason: Notification Stop: 06/10/24 14:50 Senna/Docusate Sodium (Docusate Sodium/Senna 50/8.6mg Tab) 2 tab PO HS WILLIAM Stop: 06/10/24 20:59 Last Admin: 05/17/24 20:31 Dose: Not Given Sodium Biphosphate/Sodium Phosphate (Sod Phosphate/Sod Biphosphate Enema 132 Ml Btl) 132 ml [place] ONE PRN PRN Reason: Constipation Stop: 06/10/24 14:50 Tramadol HCl (Tramadol Hcl 50 Mg Tablet) 50 - 100 mg PO Q4H PRN PRN Reason: Moderate-Severe pain & Pre PT Stop: 06/10/24 14:50 Last Admin: 05/16/24 08:41 Dose: 100 mg
== END 2024-05-18 12:52 | DRG 427 ==
LOC: ASU 08:11 → 3W 13:14